=== PATIENT | male | born 1945 | race Caucasian/White ===

== ENCOUNTER 2023-03-12 08:40 | Emergency (ER) | payer OTHER ==
[2023-03-12 08:45] VITALS: BP 133/55; PULSE 109
[2023-03-12 09:07] LABS: BASE EXCESS VENOUS 1.8 mm/L; BICARBONATE,VENOUS 27.3 mmol/L; CARBOXYHEMOGLOBIN 2.9 % (0.0-1.6); METHEMOGLOBIN 0.8 %; O2 SATURATION VENOUS 43.9; OXYHEMOGLOBIN 42.3 %; PCO2 VENOUS 48.9 mm/Hg; PH,VENOUS 7.366 (7.350-7.450); TOTAL HEMOGLOBIN 13.2 g/dL (13.5-18.0)
[2023-03-12 09:08] LABS: BASOPHILS PERCENT AUTO 0.4 % (0.1-1.3); HEMOGLOBIN 12.8 g/dL (12.9-16.9); IMMATURE GRAN ABSOLUTE AUTO 0.04 K/uL (0.00-0.23); IMMATURE GRAN PERCENT AUTO 0.8 % (0.0-0.7); LYMPHOCYTES ABSOLUTE AUTO 0.46 K/uL (0.8-3.3); LYMPHOCYTES PERCENT AUTO 9.1 % (11.4-47.7); MEAN CORPUSCULAR HEMOGLOBIN 33.2 pg (31.6-35.5); MEAN CORPUSCULAR HGB CONC 33.7 g/dL (31.6-35.5); MEAN CORPUSCULAR VOLUME 98.7 fL (81.4-99.0); MONOCYTES ABSOLUTE AUTO 0.43 K/uL (0.20-0.90); MONOCYTES PERCENT AUTO 8.5 % (3.3-12.6); NEUTROPHILS ABSOLUTE AUTO 4.09 K/uL (1.0-7.6); NEUTROPHILS PERCENT AUTO 81.2 % (40.0-78.1); PLATELET COUNT,PLT 130 K/uL (130-375); RED BLOOD CELL COUNT 3.85 M/uL (4.14-5.76)
[2023-03-12 09:10] LABS: BASOPHILS ABSOLUTE AUTO 0.02 K/uL (0.00-0.10)
[2023-03-12 09:11] LABS: PO2 VENOUS 27.2 mm/Hg
[2023-03-12 09:23] LABS: APPEARANCE,URINE CLOUDY (CLEAR); BILIRUBIN,URINE LARGE (NEGATIVE); COLOR,URINE YELLOW (YELLOW); GLUCOSE,URINE >=1000 mg/dL (NEGATIVE); KETONES,URINE TRACE mg/dL (NEGATIVE); LEUKOCYTE ESTERASE,URINE NEGATIVE (NEGATIVE); NITRITE,URINE NEGATIVE (NEGATIVE); OCCULT BLOOD,URINE NEGATIVE (NEGATIVE); PROTEIN,URINE 100 mg/dL (NEGATIVE); UROBILINOGEN,URINE 0.2 EU/dL (0.2-1.0)
[2023-03-12 09:33] LABS: AMORPHOUS SEDIMENT,URINE MANY; BACTERIA,URINE MODERATE; EPITHELIAL CELLS,URINE RARE; MUCUS,URINE RARE; RBC,URINE 0-5 (0-5); WBC,URINE 0-5 (0-5)
[2023-03-12 09:37] LABS: A/G RATIO 0.8 (1.2-2.2); ALANINE AMINOTRANSFERASE,ALT 24 U/L (12-78); ALKALINE PHOSPHATASE 54 U/L (46-116); ASPARTATE AMNIOTRANSFERASE,AST 47 U/L (15-37); BILIRUBIN TOTAL 0.9 mg/dL (0.2-1.0); BLOOD UREA NITROGEN,BUN 28 mg/dL (7-18); C-REACTIVE PROTEIN 19.31 mg/dL (0.0-0.3); CALCIUM 8.5 mg/dL (8.5-10.1); CARBON DIOXIDE,CO2 28 mmol/L (21-32); CHLORIDE,CL 99 mmol/L (100-108); CREATININE 1.6 mg/dL (0.8-1.3); EST CRCL DRUG DOSING (CG) 34.17 mL/min; ESTIMATED GFR 44 mL/min (>60); GLUCOSE RANDOM 151 mg/dL (74-106); POTASSIUM,K 4.9 mmol/L (3.6-5.2); PROTEIN TOTAL,TP 6.9 g/dL (6.4-8.2); SODIUM,NA 134 mmol/L (140-148)
[2023-03-12 09:38] LABS: ANION GAP 11.9 mmol/L (5.0-14.0); TROPONIN I HIGH SENSITIVITY 30.7 pg/mL (<=60.3)
[2023-03-12] MEDS ORDERED: Sulfamethoxazole/Trimethoprim 800-160 MG Tab PO ONE (10:27)
[2023-03-12] MEDS ORDERED: Sodium Chloride 0.9% 1,000 ML IV SCH (10:45)
[2023-03-12] MEDS ORDERED: Sodium Chloride 0.9% 10 ML Syringe FLUSH ONE (14:20)
[2023-03-12] MEDS ORDERED: Iopamidol 755 Mg/ML 100 ML Bottle IV SCH (14:30)
[2023-03-12] MEDS ORDERED: Sodium Chloride 0.9% 75 ML IV SCH (14:30)
[2023-03-12] MEDS ORDERED: Apixaban 5 MG Tab PO ONE (14:55)
== END 2023-03-12 16:19 ==
LOC: JP.ED 08:40
DX: I95.1 Orthostatic hypotension (principal); R09.02 Hypoxemia; E11.9 Type 2 diabetes mellitus without complications; Z79.82 Long term (current) use of aspirin; Z79.899 Other long term (current) drug therapy; Z79.4 Long term (current) use of insulin; Z20.822 Contact with and (suspected) exposure to COVID-19; W19.XXXA Unspecified fall, initial encounter
CPT/HCPCS: 36415; 71046; 80053; 80307; 81001; 82803; 83880; 84484; 85025; 85379; 85730; 86140; 87086; 87635; 96360; 96361; 99285; A9270; J7030; U0002